=== PATIENT | male | born 1945 | race Caucasian/White ===

== ENCOUNTER 2018-03-19 22:30 | Emergency (ER) | payer MEDICARE, MEDICAID ==
--- NOTE | 2018-03-19 23:50 | RAD ---
TWO VIEWS CERVICAL SPINE: 03/19/18 HISTORY: Patient who fell at custodial with neck pain. AP and lateral views cervical spine obtained. Radiographs are essentially nondiagnostic. The patient is unable to cooperate. There is visualizatio n of C5, C4, C3, C2 and portions of C1. The rest of the cervical spine vertebrae are not visualized. IMPRESSION: Incomplete cervical spine exam. Multilevel degenerative changes seen. Fractures cannot be excluded. I f the patient has had significant trauma, correlate with CT cervical spine if clinically indicated. POS: [facility]
--- NOTE | 2018-03-20 00:07 | CT ---
CT CERVICAL SPINE 03/19/18 HISTORY: 73-year-old with history of fall [facility] [place] a jail. Axial images are obtained with coronal and sagittal reconstructions. 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 There is an terolisthesis of C3 on C4. Multilevel C4-5 and C5-6 changes of spondylosis also seen. IMPRESSION: No evidence of acute cervical spine fractures seen. There is extensive congenital and degenerative ch anges. There is moderate to severe central C3-4 and C6-7 spinal stenosis present. POS: [facility]BER
== END 2018-03-20 00:38 | disposition home or self-care (01) ==
LOC: ERS 22:30
DX: Z04.3 Encounter for examination and observation following other accident (principal); I10 Essential (primary) hypertension; F03.90 Unspecified dementia, unspecified severity, without behavioral disturbance, psychotic disturbance, mood disturbance, and anxiety; Z91.81 History of falling; F39 Unspecified mood [affective] disorder; F32.9 Major depressive disorder, single episode, unspecified; Z79.899 Other long term (current) drug therapy; W01.10XA Fall on same level from slipping, tripping and stumbling with subsequent striking against unspecified object, initial encounter; Y92.129 Unspecified place in nursing home as the place of occurrence of the external cause
CPT/HCPCS: 72040; 72125